=== PATIENT | male | born 1945 | race American Indian/Alaskan Native ===

== ENCOUNTER 2018-03-09 08:14 | Day surgery (SDC) | payer OTHER ==
[2018-03-08 11:56] VITALS: BMI 31.0
[2018-03-09 10:28] VITALS: TEMP 97.7
[2018-03-09 11:39] VITALS: BP 132/73; PULSE 77
--- NOTE | 2018-03-10 15:32 | PATH ---
Surgical Pathology Report Patient Name: JENNY RICHARDSON [facility]. Rec. #: [id number] /Age/Gender: 1945 (Age: 72) / M Account: [id number] Location: U-ENDOSCOPY Taken: 03/09/2018 Received: 03/09/2018 Reported: 03/10/2018 Physicians: Min Trevino D.O. Specimen(s) Received A: BX BODY OF STOMACH B: BX GASTRIC POLYP C: BX GE JUNCTION D: BX CECAL POLYP Clinical History GERD without esophagitis, screening malignant neoplasm Postoperative diagnosis: Gastritis, gastric polyps, hemorrhoids Final Diagnosis A. STOMACH, BODY, BIOPSY: GASTRIC BODY MUCOSA WITH MILD CHRONIC FOCAL ACTIVE GASTRITIS WITH ASSOCIATED ULCERATION. IMMUNOHISTOCHEMICAL STAIN FOR H. PYLORI IS NEGATIVE. B. STOMACH, GASTRIC POLYP, BIOPSY: FUNDIC GLAND POLYP. GASTRIC BODY MUCOSA WITH MILD CHRONIC GASTRITIS. IMMUNOHISTOCHEMICAL STAIN FOR H. PYLORI IS NEGATIVE. C. GE JUNCTION, BIOPSY SQUAMOCOLUMNAR MUCOSA WITH SEVERE ACUTE AND CHRONIC INFLAMMATION AND CHANGES OF MODERATE TO SEVERE REFLUX ESOPHAGITIS. NO INTESTINAL METAPLASIA OR DYSPLASIA IDENTIFIED. D. ILEOCECAL VALVE, ILEAL MUCOSA, POLYPS, BIOPSY: POLYPOID JUNCTIONAL MUCOSA WITH PROMINENT LYMPHOID AGGREGATE. Electronically Signed Petra Mcdaniel M.D. Gross Description A. Received in formalin, labeled "biopsy body of stomach" are 4 kee, irregular portions of soft tissue ranging from 0.2-0.7 cm. in greatest dimension. The specimens are submitted in toto in one cassette. B. Received in formalin, labeled "biopsy gastric polyp" are 4 kee, irregular portions of soft tissue ranging from 0.2-0.6 cm. in greatest dimension. The specimens are submitted in toto in one cassette. C. Received in formalin, labeled "biopsy GE junction" are 2 kee, irregular portions of soft tissue averaging 0.3 cm. in greatest dimension. The specimens are submitted in toto in one cassette. D. Received in formalin, labeled "biopsy cecal valve polyp" are 2 kee, irregular portions of soft tissue measuring 0.1 and 0.3 cm. in greatest dimension. The specimens are submitted in toto in one cassette. [id number]
== END 2018-03-09 11:39 | disposition home or self-care (01) ==
LOC: JASU-ENDO 08:14
PROVIDERS: ATTEND Internal Medicine Gastroenterology
PROC: 0DB58ZX Excision of Esophagus, Via Natural or Artificial Opening Endoscopic, Diagnostic (ICD-10-PCS; 2018-03-09)
PROC: 0DB68ZX Excision of Stomach, Via Natural or Artificial Opening Endoscopic, Diagnostic (ICD-10-PCS; 2018-03-09)
PROC: 0DBC8ZX Excision of Ileocecal Valve, Via Natural or Artificial Opening Endoscopic, Diagnostic (ICD-10-PCS; principal; 2018-03-09 09:00)
DX: Z12.11 Encounter for screening for malignant neoplasm of colon (principal); Z86.010 Personal history of colon polyps; D12.6 Benign neoplasm of colon, unspecified; K64.8 Other hemorrhoids; K25.9 Gastric ulcer, unspecified as acute or chronic, without hemorrhage or perforation
CPT/HCPCS: 88305-TC; 88342-TC